=== PATIENT | male | born 1965 | race Caucasian/White ===

== ENCOUNTER 2018-04-27 18:46 | Emergency (ER) | payer OTHER ==
[~2018-04-27] VITALS: Ht 167.6 cm; Wt 70.0 kg
[~2018-04-27 18:46] MED LIST: ATEN50TA PO; LORA10TA3 PO; MECL25TA2 PO; TAMS0.4C2 PO
[2018-04-27 19:25] VITALS: Ht 167.6 cm; Wt 70.0 kg
--- NOTE | 2018-04-27 23:52 | ERD ---
ER Documentation Chief Complaint Chief Complaint AP + CONSTIPATION HPI The patient is a 53-year-old male, presenting to the ER because of intermittent left lower quadrant abdominal pain for 1 week, worse for 1 day, had similar symptom from previous diverticulitis. He also complains about left lower back pain, left flank pain, radiating down to the left testicle, dysuria, denies similar symptoms previously. He denies fever, planes of chills, denies chest pain, dyspnea. He does not smoke nor drink Medical history: BPH, h/o diverticulitis, hypertension Surgical history: TURP ROS All systems reviewed and are negative except as per history of present illness. Medications Home Meds Active Scripts Polyethylene Glycol* (Miralax*) 17 Gm Powd.pack, 17 GM PO DAILY, #7 Prov:SUDHAKAR ZARAGOZA MD 04/28/18 Ibuprofen* (Motrin*) 600 Mg Tab, 600 MG PO Q6H PRN for PAIN AND OR ELEVATED TEMP, #30 TAB Prov:SUDHAKAR ZARAGOZA MD 04/28/18 Meclizine Hcl* (Antivert*) 25 Mg Tablet, 25 MG PO Q8H PRN for dizziness, #20 TAB Prov:LAYLA JORDAN MD 02/15/15 Reported Medications Tamsulosin Hcl* (Tamsulosin Hcl*) 0.4 Mg Cap.er.24h, 0.4 MG PO QHS, #30 02/15/15 Loratadine* (Loratadine*) 10 Mg Tablet, 10 MG PO DAILY, #30 TAB 02/15/15 Atenolol* (Atenolol*) 50 Mg Tablet, 50 MG PO BID, TAB 02/15/15 Allergies Allergies: Coded Allergies: No Known Allergy (Unverified , 02/15/15) PMhx/Soc History of Surgery: No Anesthesia Reaction: No Hx Neurological Disorder: No Hx Respiratory Disorders: No Hx Cardiac Disorders: No Hx Psychiatric Problems: No Hx Miscellaneous Medical Probl: Yes (HTN,BORDERLINE DM) Hx Alcohol Use: No Hx Substance Use: No Hx Tobacco Use: No Physical Exam Vitals Vital Signs Date Temp Pulse Resp B/P (MAP) Pulse Ox O2 O2 Flow FiO2 Time Delivery Rate 04/27/18 98.3 72 18 164/85 98 19:25 (111) Physical Exam Const: No acute distress. Head: Atraumatic. Eyes: Normal Conjunctiva. ENT: Normal External Ears, Nose and Mouth. Neck: Full range of motion. No meningismus. Resp: Clear to auscultation bilaterally. Cardio: Regular rate and rhythm. Abd: Soft, non distended, normal bowel sounds, mild left flank/left lower quadrant tenderness, no right lower quadrant/right upper quadrant/ epigastric/rigidity/CVA tenderness Skin: No petechiae or rashes. Back: No midline or flank tenderness. Ext: No cyanosis, or edema. Neur: Awake and alert. No focal deficit Psych: Normal Mood and Affect. : Left testicular mild tenderness, no inguinal lymphadenopathy Result Diagram: 04/28/18 0015 04/28/1814 Results 24 hrs Laboratory Tests Test 04/28/18 00:15 04/28/18 00:22 White Blood Count 8.7 10^3/ul Red Blood Count 4.84 10^6/ul Hemoglobin 13.2 g/dl Hematocrit 40.4 % Mean Corpuscular Volume 83.5 fl Mean Corpuscular Hemoglobin 27.3 pg Mean Corpuscular Hemoglobin Concent 32.7 g/dl Red Cell Distribution Width 13.0 % Platelet Count 295 10^3/UL Mean Platelet Volume 9.5 fl Immature Granulocytes % 0.300 % Neutrophils % 47.5 % Lymphocytes % 40.1 % Monocytes % 8.2 % Eosinophils % 3.3 % Basophils % 0.6 % Nucleated Red Blood Cells % 0.0 /100WBC Immature Granulocytes # 0.030 10^3/ul Neutrophils # 4.1 10^3/ul Lymphocytes # 3.5 10^3/ul Monocytes # 0.7 10^3/ul Eosinophils # 0.3 10^3/ul Basophils # 0.1 10^3/ul Nucleated Red Blood Cells # 0.0 10^3/ul Sodium Level 140 mmol/L Potassium Level 3.2 mmol/L Chloride Level 101 mmol/L Carbon Dioxide Level 30 mmol/L Anion Gap 9 Blood Urea Nitrogen 13 mg/dl Creatinine 0.76 mg/dl Est Glomerular Filtrat Rate mL/min > 60 mL/min Glucose Level 122 mg/dl Calcium Level 9.2 mg/dl Total Bilirubin 0.2 mg/dl Direct Bilirubin 0.00 mg/dl Indirect Bilirubin 0.2 mg/dl Aspartate Amino Transf (AST/SGOT) 22 IU/L Alanine Aminotransferase (ALT/SGPT) 24 IU/L Alkaline Phosphatase 76 IU/L Total Protein 7.7 g/dl Albumin 4.4 g/dl Globulin 3.30 g/dl Albumin/Globulin Ratio 1.33 Lipase 197 U/L Bedside Urine pH (LAB) 5.5 Bedside Urine Protein (LAB) Negative Bedside Urine Glucose (UA) Negative Bedside Urine Ketones (LAB) Negative Bedside Urine Blood Trace-lysed Bedside Urine Nitrite (LAB) Negative Bedside Urine Leukocyte Esterase (L Negative Current Medications Medications Dose Sig/Alejandro Start Time Status Last (Trade) Ordered Route PRN Stop Time Admin Dose Reason Admin Ketorolac 30 mg ONCE STAT 04/28/18 DC 04/28/18 Tromethamine IV 00:00 00:34 (Toradol) 04/28/18 00:02 Potassium 40 meq ONCE ONCE 04/28/18 DC 04/28/18 Chloride PO 02:10 02:13 (Klor-Con 20) 04/28/18 02:11 Procedures/[place] [id number] Radiology Main Line: [phone] DIAGNOSTIC IMAGING REPORT Patient: LISHA PATHAK : 1965 Age: 53 Sex: M MR #: [id number] DOS: 04/28/18 0000 Ordering MD: SUDHAKAR ZARAGOZA MD Location: E/R Room/Bed: PROCEDURE: CT Abdomen and Pelvis without contrast. CLINICAL INDICATION: Abdominal pain. TECHNIQUE: A CT scan of the abdomen and pelvis was performed without intravenous contrast. Coronal and sagittal reformatted images were generated. DICOM images are available. Images were reviewed on a high-resolution PACS workstation. CTDIvol: 11.40 mGy. DLP: 760.68 mGy-cm. One or more of the following dose reduction techniques were used: - Automated exposure control. - Adjustment of the mA and/or kV according to patient size. - Use of iterative reconstruction technique. COMPARISON: None. FINDINGS: There are minimal atelectatic changes in the lower lobes. A calcified granuloma is identified in the right lower lobe. Evaluation of the abdominal and pelvic viscera is limited by the lack of oral and intravenous contrast. The liver is unremarkable. The gallbladder is normal in appearance. The common bile duct is not dilated. The spleen is not enlarged. No pancreatic lesion is identified and there is no pancreatic ductal dilatation. The adrenal glands are unremarkable. The kidneys are normal in size. There is no perinephric fat stranding. No hydronephrosis is seen. No urinary stone is identified. The small and large bowel are normal in caliber. There is no bowel wall thickening. There is moderate descending and sigmoid colon diverticulosis. The appendix is normal. The urinary bladder is unremarkable. The prostate gland is enlarged. No lymphadenopathy is identified. There is no ascites. No pneumoperitoneum is seen. There are minimal arterial calcifications. There is a small fat-containing umbilical hernia. No suspicious osseous lesion is identified. IMPRESSION: No inflammation, mass, or lymphadenopathy. No obstructive uropathy or urinary stone. Normal appendix. Moderate descending and sigmoid colon diverticulosis. Enlarged prostate gland. Correlation with PSA level is recommended. RPTAT: HTAR .Chas Gonzales MD, MD Date Time Electronically viewed and signed by .Chas Gonzales MD, MD on 04/28/2018 01:25 .R/ CC: SUDHAKAR ZARAGOZA MD [id number] [place] [id number] Radiology Main Line: [phone] DIAGNOSTIC IMAGING REPORT Patient: LISHA PATHAK : 1965 Age: 53 Sex: M MR #: [id number] DOS: 04/28/18 0000 Ordering MD: SUDHAKAR ZARAGOZA MD Location: E/R Room/Bed: PROCEDURE: Scrotal ultrasound CLINICAL INDICATION: Pain. TECHNIQUE: A scrotal ultrasound was performed utilizing posadas scale and Doppler imaging. COMPARISON: None. FINDINGS: The right testicle measures 4.0 x 1.9 x 2.5 cm. There is normal size and ech ogenicity and morphology of the right testicle with normal blood flow. The right epididymis measures 1.1 x 0.6 x 0.7 cm. Normal vascular flow is seen within the right epididymis. The left testicle measures 3.8 x 2.2 x 2.5 cm. There is normal size and echogenicity and morphology of the left testicle with normal blood flow. The left epididymis measures 1.0 x 0.4 x 0.4 cm. Normal vascular flow is seen within the left epididymis. There are small bilateral hydroceles. No varicocele is identified. IMPRESSION: Normal appearance of the testicles and epididymides. Small bilateral hydroceles. RPTAT: HTAR .Chas Gonzales MD, MD Date Time Electronically viewed and signed by .Chas Gonzales MD, MD on 04/28/2018 01:26 .R/ CC: SUDHAKAR ZARAGOZA MD [id number] MEDICAL MAKING DECISION: The patient is a 53-year-old male, presenting with acute abdominal pain, most likely due to diverticulosis, no evidence of diverticulitis, acute hypokalemia. He was treated with Toradol 30 mg IV for pain and potassium chloride 40 mg p.o. for hypokalemia with good response, is stable for outpatient follow-up The differential diagnoses considered include but are not limited to cho lelithiasis, cholecystitis, choledocholithiasis, cholangitis, pancreatitis, hepatitis, gastritis, peptic ulcer disease, gastric ulcer, appendicitis, cystitis, diverticulitis, partial small bowel obstruction. Departure Diagnosis: Primary Impression: Diverticulosis Additional Impressions: Hypokalemia Hydrocele Anemia Condition: Good Comments He was discharged with Motrin and MiraLAX I discussed the findings with the patient. I advised the patient to follow-up with the primary physician/Dr. Cabrera for hydrocele in about 2-3 days, sooner if needed and return if any concern. Disclaimer: Inadvertent spelling and grammatical errors are likely due to EHR/dictation software use and do not reflect on the overall quality of patient care. Also, please note that the electronic time recorded on this note does not necessarily reflect the actual time of the patient encounter. SUDHAKAR ZARAGOZA MD Apr 27, 2018 23:52
[2018-04-28] MEDS ORDERED: KETOROLAC 30 MG INJ IV STA
[2018-04-28] MEDS ORDERED: POTASSIUM CHLORIDE (SR) 20 MEQ TAB PO ONE (02:10)
[2018-04-28] MEDS ORDERED: IBUP-1542 PO (02:16)
[2018-04-28] MEDS ORDERED: POLY17PO6 PO (02:17)
[2018-04-28 02:35] VITALS: BP 104/67; PULSE 60; RESP 14
== END 2018-04-28 02:40 | disposition home or self-care (01) ==
LOC: E/R 18:46
DX: K57.30 Diverticulosis of large intestine without perforation or abscess without bleeding (principal); E87.6 Hypokalemia; N43.3 Hydrocele, unspecified; D64.9 Anemia, unspecified; I10 Essential (primary) hypertension; R40.2142 Coma scale, eyes open, spontaneous, at arrival to emergency department; R40.2362 Coma scale, best motor response, obeys commands, at arrival to emergency department; R40.2252 Coma scale, best verbal response, oriented, at arrival to emergency department
CPT/HCPCS: 36415; 74176; 76870; 80053; 81003; 83690; 85025; 96374; J1885; Z7502; Z7610